=== PATIENT | male | born 1985 | race Hispanic/Latino ===

== ENCOUNTER 2020-04-26 13:55 | Emergency (ER) | payer OTHER ==
[~2020-04-26] VITALS: Ht 180.3 cm; Wt 88.5 kg
[2020-04-26 14:22] VITALS: BP 141/85; TEMP 99.1
== END 2020-04-26 15:35 | disposition home or self-care (01) ==
LOC: ED 13:55
PROC: 0HQEXZZ Repair Left Lower Arm Skin, External Approach (ICD-10-PCS; principal; 2020-04-26)
DX: S51.812A Laceration without foreign body of left forearm, initial encounter (principal); W26.8XXA Contact with other sharp object(s), not elsewhere classified, initial encounter; Y92.89 Other specified places as the place of occurrence of the external cause
CPT/HCPCS: 90471; 90715; 96372; 99283; J0696

== ENCOUNTER 2020-05-04 17:12 | Emergency (ER) | payer OTHER ==
[~2020-05-04] VITALS: Ht 180.3 cm; Wt 88.5 kg
[2020-05-04 17:22] VITALS: BP 147/87; TEMP 99.1
== END 2020-05-04 17:50 | disposition home or self-care (01) ==
LOC: ED 17:12
DX: Z48.02 Encounter for removal of sutures (principal)

== ENCOUNTER 2021-03-27 15:35 | Outpatient (CLI) | payer BC | END 2021-03-27 22:17 | disposition home or self-care (01) | LOC: RAD 15:35 | PROVIDERS: ATTEND Physician Assistant | DX: M25.559 Pain in unspecified hip (principal) ==

== ENCOUNTER 2021-08-30 14:08 | Outpatient (CLI) | payer BC | END 2021-08-30 20:48 | disposition home or self-care (01) | LOC: MRI 14:08 | PROVIDERS: ATTEND Physician Assistant | DX: H53.2 Diplopia (principal) ==